=== PATIENT | female | born 1995 | race Caucasian/White ===

== ENCOUNTER 2018-04-09 20:19 | Emergency (ER) | payer SELFPAY ==
[~2018-04-09] VITALS: Ht 157.5 cm; Wt 49.0 kg
[2018-04-09 21:45] VITALS: Ht 157.5 cm; Wt 49.0 kg
[2018-04-10 00:10] VITALS: BP 115/67
== END 2018-04-10 00:10 | disposition home or self-care (01) ==
LOC: ED 20:19
DX: S16.1XXA Strain of muscle, fascia and tendon at neck level, initial encounter (principal); V49.49XA Driver injured in collision with other motor vehicles in traffic accident, initial encounter; W22.11XA Striking against or struck by driver side automobile airbag, initial encounter; Y93.I9 Activity, other involving external motion; Y92.413 State road as the place of occurrence of the external cause; Y99.8 Other external cause status; Z86.2 Personal history of diseases of the blood and blood-forming organs and certain disorders involving the immune mechanism